=== PATIENT | male | born 1955 | race Caucasian/White ===

== ENCOUNTER 2022-09-28 07:58 | Outpatient (CLI) | payer OTHER | END 2022-09-28 07:59 | disposition home or self-care (01) | LOC: SCSMRI 07:58 | PROVIDERS: ATTEND Family Medicine | DX: S49.92XD Unspecified injury of left shoulder and upper arm, subsequent encounter (principal); M75.102 Unspecified rotator cuff tear or rupture of left shoulder, not specified as traumatic ==